=== PATIENT | female | born 1975 | race Caucasian/White ===

== ENCOUNTER → 2022-07-17 | Day surgery (SDC) | payer MEDICAID ==
[2022-07-12 13:47] LABS: BASOPHILS # (AUTO) 0.1 X10'3 (0-0.2); BASOPHILS % (AUTO) 1.1 % (0-1); EOSINOPHILS # (AUTO) 0.1 X10'3 (0-0.9); EOSINOPHILS % (AUTO) 1.7 % (0-6); LYMPHOCYTES # (AUTO) 1.7 X10'3 (1.1-4.8); LYMPHOCYTES % (AUTO) 35.5 % (21-51); MEAN CORPUSCULAR HEMOGLOBIN 27.9 PG (27.0-31.0); MEAN CORPUSCULAR HGB CONC 32.5 g/dL (33.0-36.5); MEAN CORPUSCULAR VOLUME 85.9 FL (78-98); MEAN PLATELET VOLUME 7.3 FL (7.4-10.4); MONOCYTES # (AUTO) 0.3 X10'3 (0-0.9); MONOCYTES % (AUTO) 5.5 % (2-12); NEUTROPHILS # (AUTO) 2.7 X10'3 (1.8-7.7); NEUTROPHILS % (AUTO) 56.2 % (42-75); PRE OP HEMATOCRIT 35.3 % (35.0-45.0); PRE OP HEMOGLOBIN 11.5 g/dL (12.0-16.0); PRE OP PLATELET COUNT 240 X10'3 (140-440); RED BLOOD COUNT 4.11 X10'6 (4.20-5.60); RED CELL DISTRIBUTION WIDTH 17.2 % (11.5-14.5)
[2022-07-12 14:00] LABS: ALBUMIN 3.7 G/DL (3.4-5.0); ALBUMIN/GLOBULIN RATIO 1.2 (1.1-1.5); ALKALINE PHOSPHATASE 65 IU/L (46-116); BLOOD UREA NITROGEN 15 MG/DL (7-18); BUN/CREATININE RATIO 18.1 (6.6-38.0); CALCIUM 8.2 MG/DL (8.5-10.1); CHLORIDE 108 MMOL/L (99-107); CREATININE 0.83 MG/DL (0.40-0.90); PRE OP ALT 7 U/L (30-65); PRE OP ANION GAP 6 (8-16); PRE OP AST 15 U/L (10-37); PRE OP BILIRUB, TOTAL 0.5 MG/DL (0.0-1.0); PRE OP GLUCOSE 98 MG/DL (70-104); PRE OP POTASSIUM 3.7 MMOL/L (3.4-5.1); PRE OP SODIUM 138 MMOL/L (135-145); TOTAL CARBON DIOXIDE 23.7 MMOL/L (24-32); TOTAL PROTEIN 6.9 G/DL (6.4-8.2); eGFR 73 ML/MIN
[~2022-07-17] VITALS: Ht 167.6 cm; Wt 88.1 kg
[2022-07-17] VITALS (14 sets, daily range): BP systolic 108–140; BP diastolic 73–91
[~2022-07-17] MED LIST: BUPIVACAINE liposomal/PF 13.3 MG/ML vial IM ONE; BUPIVAcaine 0.5% inj/PF 30 ML ONE; BUPIVAcaine 0.5% inj/PF 30 ml vial IJ ONE; BUPIVAcaine 0.5% inj/PF 60 ML ONE; CYAN10007; LIDOcaine 1% 30ml preserv. free vial IJ ONE; LIDOcaine 1% 30ml preserv. free vial ONE; LIDOcaine 1%/PF 5ML 10 MG/ML VIAL ONE; NAPR220T67 PO; VITAMIN D; albuterol 2.5 MG/3 ML nebule NEB PRN; ceFAZolin inj. 2,000 MG in dextrose 5%-water 100 ML IV ONE; desflurane 240ml liquid inh. IH ONE; dexamethasone sod phosphate 4mg/ml inj. ONE; dexmedetomidine 200mcg/2ml inj. IV ONE; diazepam 5mg tablet PO ONE; famotidine 20mg tablet PO ONE; fentaNYL /PF 50mcg/ml 5ml ampule ONE; fentaNYL/PF 50MCG/1 ML 2ML syringe IV PRN; glycopyrrolate 0.2mg/ml inj ONE; hydrALAZINE 20mg/ml inj. IV PRN; labetalol 20mg/4ml (5mg/ml) syringe IV PRN; midazolam 1 mg/ML 2ml injection ONE; morphine 2 MG/ML inj. syringe IV PRN; morphine 4 MG/ML inj SYRINge IV PRN; neostigmine methylsulfate 1 MG/ML 10ml vial ONE; ondansetron/PF 4mg/2ml inj IV PRN; ondansetron/PF 4mg/2ml inj ONE; oxyCODONE/APAP 5-325mg tablet PO PRN; propofol inj 20 ML IV ONE; ringers solution, lacted 1,000 ML IV SCH; rocuronium 10mg/ml inj IV ONE
--- NOTE | 2022-07-17 13:00 | NUR ---
PT READY FOR SX BUT VERY ANXIOUS, GIVEN 5MG VALIUM PER ANESTHESIA ORDER.
--- NOTE | 2022-07-17 16:20 | NUR ---
Received from OR via , accompanied by Anesthesiologist LANCE AND OR NURSE and report given by Anesthesiolgist. PT IS DROWSY YET ABLE TO FOLLOW VERBAL COMMANDS. 3 LAP SITES TO LEFT SIDE OF ABDOMEN WITH BANDAIDS; CDI. BELLY BUTTON PACKED WITH COTTON AND ISLAND DRESSING OVER; CDI. VSS Addendum: 07/17/22 at 1634 by Cathleen Munoz RN Amended: Links added.
--- NOTE | 2022-07-17 18:30 | NUR ---
I HAVE REVIEWED D/C INSTRUCTIONS WITH PATIENT and they have verbalized understanding patient d/c home with all belongings and family gave transport home. Addendum: 07/17/22 at 1901 by Cathleen Munoz RN Amended: Links added.
== END | disposition home or self-care (01) ==
LOC: PRE-OP 11:23
PROVIDERS: ATTEND Surgery
DX: K43.6 Other and unspecified ventral hernia with obstruction, without gangrene (principal); K42.9 Umbilical hernia without obstruction or gangrene; F41.9 Anxiety disorder, unspecified; F17.210 Nicotine dependence, cigarettes, uncomplicated; F32.A Depression, unspecified; Z88.2 Allergy status to sulfonamides; Z72.89 Other problems related to lifestyle; Z98.890 Other specified postprocedural states; Z98.51 Tubal ligation status; Z79.899 Other long term (current) drug therapy; Z82.3 Family history of stroke; Z82.49 Family history of ischemic heart disease and other diseases of the circulatory system; Z81.8 Family history of other mental and behavioral disorders; Z80.3 Family history of malignant neoplasm of breast; Z80.8 Family history of malignant neoplasm of other organs or systems
CPT/HCPCS: 36415; 49594; 64488; 71046; 80053; 82948; 85025; 93005; C1781; C9290; J0690; J1100; J2250; J2405; J2704; J2710; J3010; J3490; J7030; J7060; J7120; S0020; S2900; Z7506; Z7508; Z7512; A4215; A4618